=== PATIENT | male | born 2005 | race American Indian/Alaskan Native ===

== ENCOUNTER → 2024-12-25 | Emergency (ER) | payer OTHER ==
[~2024-12-25] VITALS: Ht 172.7 cm; Wt 68.0 kg
[~2024-12-25] MED LIST: 0.9 % SODIUM CHLORIDE 500 ML IV SCH; DIPHENHYDRAMINE HCL 50 MG/ML VIAL 1ML IV SCH; DIPHENHYDRAMINE HCL 50 MG/ML VIAL 1ML ONE; EPINEPHRINE HCL/PF 1 MG/ML AMPUL ONE; EPINEPHRINE HCL/PF 1 MG/ML AMPUL SUBCUTANEO STA; FAMOTIDINE/PF 20 MG/2 ML VIAL IV SCH; FAMOTIDINE/PF 20 MG/2 ML VIAL ONE; METHYLPREDNISOLONE SOD SUCC 125 MG VIAL IV SCH; METHYLPREDNISOLONE SOD SUCC 125 MG VIAL ONE
== END | disposition home or self-care (01) ==
LOC: ER 15:48 → EMR PED 15:48
DX: T78.40XA Allergy, unspecified, initial encounter (principal); L50.8 Other urticaria; Z91.018 Allergy to other foods
CPT/HCPCS: 96365; 99282; J1200; J3490; J7042